=== PATIENT | male | born 1970 | race African-American/Black ===

== ENCOUNTER 2018-11-10 09:38 | Emergency (ER) | payer OTHER ==
[~2018-11-10] VITALS: Ht 185.4 cm; Wt 109.1 kg
[2018-11-10 09:59] LABS: BASO % 0.2 % (0.0-2.0); EOS % 0.3 % (0-4.0); GRAN # 6.6 (1.4-6.5); GRAN % 60.8 % (42.2-75.2); HEMATOCRIT 42.8 % (42.0-52.0); HEMOGLOBIN 15.2 g/dl (13.5-18.0); LYMPH # 3.2 (1.2-3.4); LYMPH % 29.5 % (20.0-51.0); MEAN CELL VOLUME 89 fl (80.0-100.0); MEAN CORPUSCULAR HEMOGLOBIN 32 pg (27.0-31.0); MEAN CORPUSCULAR HGB CONC 36 g/dl (33.0-37.0); MEAN PLATELET VOLUME 9.5 fl (7.4-10.4); MONO # 0.9 (0.1-0.6); MONO % 8.6 % (1.7-9.3); PLATELET COUNT 270 K/mm3 (130-400); RED BLOOD COUNT 4.81 M/mm3 (4.20-5.60); REDCELL DISTRIBUTION WIDTH-CV 12.7 % (11.5-14.5)
[2018-11-10 10:28] LABS: ALANINE AMINOTRANSFERASE < 6 U/L (21-72); ALBUMIN 4.5 gm/dL (3.5-5.0); ALKALINE PHOSPHATASE 79 U/L (50-136); ANION GAP 14 mmol/L (7-16); AST,SGOT 27 U/L (15-37); BILIRUBIN,TOTAL 0.8 mg/dL (0.0-1.0); BLOOD UREA NITROGEN 7 mg/dL (9-20); CALCIUM 8.7 mg/dL (8.4-10.2); CARBON DIOXIDE 21 mmol/L (22-30); CHLORIDE 107 mmol/L (98-107); CREATININE, serum 1.24 (0.66-1.25); GLUCOSE 126 mg/dL (74-106); POTASSIUM 3.6 mmol/L (3.4-5.0); SODIUM 143 mmol/L (137-145); TOTAL PROTEIN 7.8 gm/dL (6.4-8.2)
[2018-11-10 10:37] LABS: ALCOHOL(ethanol),MEDICAL 282 mg/dL
[2018-11-10 10:38] LABS: ACETAMINOPHEN < 10 ug/mL (10-30)
[2018-11-10 15:15] VITALS: BP 118/86; PULSE 86; TEMP 98.2
== END 2018-11-10 15:32 | disposition home or self-care (01) ==
LOC: COL.ER 09:38
PROVIDERS: Family Medicine
DX: F10.129 Alcohol abuse with intoxication, unspecified (principal)
CPT/HCPCS: J7030; J7120